=== PATIENT | male | born 1940 | race Hispanic/Latino ===

== ENCOUNTER 2021-04-11 13:35 | Inpatient (IN) | payer OTHER, MEDICARE ==
[2021-04-11] VITALS (8 sets, daily range): BP systolic 120–144; BP diastolic 59–75
[~2021-04-11] VITALS: Ht 172.7 cm; Wt 103.4 kg
[2021-04-11 13:54] LABS: BASOPHILS % (AUTO) 0.3 % (0.0-5.0); HEMATOCRIT 42.1 % (42-54); LYMPHOCYTES % (AUTO) 4.2 % (21.0-51.0); MEAN CORPUSCULAR HEMOGLOBIN 27.3 pg (27.0-33.0); MEAN CORPUSCULAR HGB CONC 32.1 g/dL (32.0-36.0); MEAN CORPUSCULAR VOLUME 85.2 fL (79-99); MONOCYTES % (AUTO) 5.1 % (3.0-13.0); NEUTROPHILS % (AUTO) 86.9 % (40.0-77.0); PLATELET COUNT (AUTO) 173 K/uL (130-400); RED BLOOD CELL COUNT(AUTO) 4.94 MIL/uL (4.50-6.20); RED CELL DISTRIBUTION WIDTH 13.3 % (11.0-15.5); WHITE BLOOD COUNT (AUTO) 15.4 K/uL (4.8-10.8)
[2021-04-11] MEDS ORDERED: ASPIRIN 325MG EC TAB PO ONE (14:00)
[2021-04-11] MEDS ORDERED: ONDANSETRON 4MG INJ IVP ONE (14:00)
[2021-04-11] MEDS ORDERED: MORPHINE 2 MG SYG IVP ONE (14:00)
[2021-04-11 14:10] LABS: INR 1.01 (0.85-1.15)
[2021-04-11 14:12] LABS: CREATININE 1.7 mg/dL (0.5-1.5); PARTIAL THROMBOPLASTIN TIME 32.8 SEC (26.3-35.5); POTASSIUM 4.2 mmol/L (3.5-5.1)
[2021-04-11 14:16] LABS: ALBUMIN 3.3 g/dL (3.5-5.0); BILIRUBIN,TOTAL 0.5 mg/dL (0.2-1.0); TOTAL PROTEIN, SERUM 7.6 g/dL (6.0-8.3)
[2021-04-11 14:22] LABS: B-TYPE NATRIURETIC PEPTIDE 359 pg/mL (0-100)
[2021-04-11] MEDS ORDERED: 0.9% NACL 250ML IVPB ONE (16:30)
[2021-04-11] MEDS ORDERED: CEFTRIAXONE 1G VIAL IVP ONE (16:30)
[2021-04-11] MEDS ORDERED: AZITHROMYCIN 500MG VIAL IVPB ONE (16:30)
[2021-04-11] MEDS ORDERED: AZITHROMYCIN 500MG+NS 250ML 250 ML IV ONE (17:07)
[2021-04-11] MEDS ORDERED: GLUCAGON 1MG KIT 1 MG ML IM PRN (17:30)
[2021-04-11] MEDS ORDERED: DEXTROSE 50%-WATER 50 ML DISP.SYRIN IV PRN (17:30)
[2021-04-11] MEDS ORDERED: ACETAMINOPHEN 325 MG TAB ONE (17:55)
[2021-04-11] MEDS ORDERED: ACETAMINOPHEN 325 MG TAB PO ONE (18:00)
[2021-04-11 18:33] LABS: APPEARANCE,URINE Clear (CLEAR); BILIRUBIN,URINE Negative (NEGATIVE); COLOR,URINE Yellow (YELLOW); GLUCOSE, URINE (UA) Negative (NEGATIVE); KETONES,URINE Negative (NEGATIVE); LEUKOCYTE ESTERASE ,URINE Trace (NEGATIVE); NITRATE,URINE Negative (NEGATIVE); OCCULT BLOOD,URINE Negative (NEGATIVE); PH,URINE 5.5 (5.0-8.0); PROTEIN,URINE 300 mg/dL (NEGATIVE)
[2021-04-11 18:39] LABS: RBC,URINE 0-1 /HPF (0-1)
[2021-04-11 18:40] LABS: BACTERIA,URINE Rare /HPF (None Seen); SQUAMOUS EPITHELIAL CELL,UR Rare /HPF (0-2)
[2021-04-11] MEDS ORDERED: ONDANSETRON 4MG INJ IVP PRN (19:30)
[2021-04-11] MEDS: INSULIN HUMULIN R 100 UNIT/ML 3ML SQ SCH (19:49)
[2021-04-11] MEDS: DOXYCYCLINE 100MG+NS 250ML IV SCH (20:31)
[2021-04-11] MEDS: 0.9% NACL 250ML IVPB SCH (20:31)
[2021-04-11] MEDS: ACETAMINOPHEN 325 MG TAB PO PRN (23:13)
[2021-04-12 04:00] VITALS: BP 134/68
[2021-04-12] MEDS: INSULIN HUMULIN R 100 UNIT/ML 3ML SQ SCH ×4 (05:51→20:21)
[2021-04-12 05:57] LABS: BASOPHILS % (AUTO) 0.3 % (0.0-5.0); HEMATOCRIT 41.4 % (42-54); LYMPHOCYTES % (AUTO) 5.3 % (21.0-51.0); MEAN CORPUSCULAR HEMOGLOBIN 27.2 pg (27.0-33.0); MEAN CORPUSCULAR HGB CONC 31.2 g/dL (32.0-36.0); MEAN CORPUSCULAR VOLUME 87.2 fL (79-99); MONOCYTES % (AUTO) 7.5 % (3.0-13.0); NEUTROPHILS % (AUTO) 84.1 % (40.0-77.0); PLATELET COUNT (AUTO) 174 K/uL (130-400); RED BLOOD CELL COUNT(AUTO) 4.75 MIL/uL (4.50-6.20); RED CELL DISTRIBUTION WIDTH 13.3 % (11.0-15.5); WHITE BLOOD COUNT (AUTO) 11.7 K/uL (4.8-10.8)
[2021-04-12] MEDS ORDERED: MAGNESIUM 2GM PREMIX 50ML 50 ML IV PRN (06:00)
[2021-04-12] MEDS: 0.9% NACL 250ML IVPB SCH ×2 (06:12→19:30)
[2021-04-12] MEDS: DOXYCYCLINE 100MG+NS 250ML IV SCH ×2 (06:12→18:11)
[2021-04-12] MEDS: MORPHINE 2 MG SYG IVP PRN ×3 (06:21→18:11)
[2021-04-12 06:23] LABS: CREATININE 1.7 mg/dL (0.5-1.5); MAGNESIUM 2.1 mg/dL (1.80-2.40); POTASSIUM 4.4 mmol/L (3.5-5.1)
[2021-04-12 06:40] LABS: HEMOGLOBIN A1C 7.1 % (4.0-6.0)
[2021-04-12 07:50] VITALS: BP 134/61
[2021-04-12] MEDS: ENOXAPARIN SODIUM 30 MG/0.3 ML SQ SCH (08:50)
[2021-04-12] MEDS ORDERED: METO25TA6 PO (10:39)
[2021-04-12] MEDS ORDERED: ATOR10TA69 PO (10:39)
[2021-04-12] MEDS ORDERED: SITA100T12 PO (10:48)
[2021-04-12] MEDS ORDERED: ASPI-1197 PO (10:48)
[2021-04-12] MEDS ORDERED: AMLO-258 PO (10:48)
[2021-04-12] MEDS ORDERED: LISI40TA9 PO (10:48)
[2021-04-12] MEDS ORDERED: GLIP5TAB11 PO (10:48)
[2021-04-12] MEDS ORDERED: LEVO88CA4 PO (10:48)
[2021-04-12] MEDS ORDERED: TAMS-1 PO (10:48)
[2021-04-12 12:00] VITALS: BP 142/73
[2021-04-12] MEDS: SOLU-MEDROL 40MG VIAL IVP SCH (14:56)
[2021-04-12 16:00] VITALS: BP 149/58
[2021-04-12] MEDS ORDERED: NITR0.4T50 SL (17:25)
[2021-04-12] MEDS ORDERED: NITROGLYCERIN 0.4 MG SL TAB SL PRN (17:30)
[2021-04-12] MEDS ORDERED: NITROGLYCERIN 0.4 MG SL TAB SL ONE (17:32)
[2021-04-12] MEDS: CEFTRIAXONE 1G VIAL IVP SCH (18:12)
[2021-04-12 20:00] VITALS: BP 123/63
[2021-04-12] MEDS: ACETAMINOPHEN 325 MG TAB PO PRN (20:19)
[2021-04-12] MEDS: METOPROLOL TARTRATE 25 MG TAB PO SCH (20:19)
[2021-04-13] VITALS (7 sets, daily range): BP systolic 119–147; BP diastolic 7–72
[2021-04-13] MEDS ORDERED: LEVOTHYROXINE 88 MCG TABLET ONE (04:50)
[2021-04-13] MEDS ORDERED: GLIPIZIDE 5 MG TABLET ONE (04:50)
[2021-04-13 05:45] LABS: HEMATOCRIT 41.2 % (42-54); MEAN CORPUSCULAR HGB CONC 30.8 g/dL (32.0-36.0); MEAN CORPUSCULAR VOLUME 87.7 fL (79-99); PLATELET COUNT (AUTO) 162 K/uL (130-400); RED CELL DISTRIBUTION WIDTH 13.2 % (11.0-15.5); WHITE BLOOD COUNT (AUTO) 13.5 K/uL (4.8-10.8)
[2021-04-13 05:58] LABS: CREATININE 2.1 mg/dL (0.5-1.5); MAGNESIUM 2.3 mg/dL (1.80-2.40); POTASSIUM 4.7 mmol/L (3.5-5.1)
[2021-04-13] MEDS: LEVOTHYROXINE 88 MCG TABLET PO SCH (06:25)
[2021-04-13] MEDS: DOXYCYCLINE 100MG+NS 250ML IV SCH ×2 (06:25→21:03)
[2021-04-13] MEDS: 0.9% NACL 250ML IVPB SCH ×2 (06:25→21:03)
[2021-04-13] MEDS: GLIPIZIDE 5 MG TABLET PO SCH (06:25)
[2021-04-13] MEDS: INSULIN HUMULIN R 100 UNIT/ML 3ML SQ SCH ×4 (06:26→21:00)
[2021-04-13] MEDS: LACTULOSE 20 GM/30 ML UDCUP PO SCH ×3 (07:52→17:09)
[2021-04-13] MEDS: LINAGLIPTIN 5 MG TABLET PO SCH (08:59)
[2021-04-13] MEDS: SOLU-MEDROL 40MG VIAL IVP SCH (08:59)
[2021-04-13] MEDS: ATORVASTATIN 10 MG TABLET PO SCH (09:00)
[2021-04-13] MEDS: ASPIRIN 81MG CHEW TAB PO SCH (09:00)
[2021-04-13] MEDS: LISINOPRIL 40 MG TABLET PO SCH (09:00)
[2021-04-13] MEDS: METOPROLOL TARTRATE 25 MG TAB PO SCH ×2 (09:00→21:03)
[2021-04-13] MEDS: AMLODIPINE 5 MG TAB PO SCH (09:00)
[2021-04-13] MEDS: TAMSULOSIN HCL 0.4 MG CAP.ER.24H PO SCH (09:00)
[2021-04-13] MEDS: ENOXAPARIN SODIUM 30 MG/0.3 ML SQ SCH (09:07)
[2021-04-13] MEDS: CEFTRIAXONE 1G VIAL IVP SCH (17:09)
[2021-04-13] MEDS: MORPHINE 2 MG SYG IVP PRN (21:09)
[2021-04-14 03:36] VITALS: BP 139/72
[2021-04-14] MEDS: INSULIN HUMULIN R 100 UNIT/ML 3ML SQ SCH ×4 (06:13→22:32)
[2021-04-14] MEDS: 0.9% NACL 250ML IVPB SCH ×2 (06:17→22:19)
[2021-04-14] MEDS: GLIPIZIDE 5 MG TABLET PO SCH (06:17)
[2021-04-14] MEDS: LEVOTHYROXINE 88 MCG TABLET PO SCH (06:17)
[2021-04-14] MEDS: DOXYCYCLINE 100MG+NS 250ML IV SCH ×2 (06:17→22:18)
[2021-04-14 08:19] VITALS: BP 146/86
[2021-04-14] MEDS: METOPROLOL TARTRATE 25 MG TAB PO SCH ×2 (10:17→22:21)
[2021-04-14] MEDS: ATORVASTATIN 10 MG TABLET PO SCH (10:17)
[2021-04-14] MEDS: LINAGLIPTIN 5 MG TABLET PO SCH (10:17)
[2021-04-14] MEDS: AMLODIPINE 5 MG TAB PO SCH (10:17)
[2021-04-14] MEDS: TAMSULOSIN HCL 0.4 MG CAP.ER.24H PO SCH (10:17)
[2021-04-14] MEDS: ASPIRIN 81MG CHEW TAB PO SCH (10:17)
[2021-04-14] MEDS: LISINOPRIL 40 MG TABLET PO SCH (10:19)
[2021-04-14] MEDS: SOLU-MEDROL 40MG VIAL IVP SCH ×3 (10:19→22:20)
[2021-04-14] MEDS: ENOXAPARIN SODIUM 30 MG/0.3 ML SQ SCH (10:20)
[2021-04-14 11:10] VITALS: BP 140/65
[2021-04-14] MEDS ORDERED: HYDRALAZINE 20MG/ML VIAL IV PRN (11:30)
[2021-04-14] MEDS: IPRATROPIUM/ALBUTEROL SULFATE 3 ML SOLUTION IH SCH ×4 (11:46→22:58)
[2021-04-14] MEDS ORDERED: IPRATROPIUM/ALBUTEROL SULFATE 3 ML SOLUTION IH SCH (12:00)
[2021-04-14 15:47] VITALS: BP 144/64
[2021-04-14] MEDS ORDERED: BUDESONIDE 0.25 MG/2 ML INH IH ONE (18:23)
[2021-04-14] MEDS: BUDESONIDE 0.5 MG/2 ML INH IH SCH (18:25)
[2021-04-14] MEDS: CEFTRIAXONE 1G VIAL IVP SCH (18:38)
[2021-04-14 20:17] VITALS: BP 125/50
[2021-04-14] MEDS ORDERED: PREDNISONE 20 MG TABLET PO SCH (21:00)
[2021-04-14] MEDS: MONTELUKAST SODIUM 10 MG TAB PO SCH (22:21)
[2021-04-14 23:22] VITALS: BP 122/56
[2021-04-15] MEDS: IPRATROPIUM/ALBUTEROL SULFATE 3 ML SOLUTION IH SCH ×6 (02:26→22:22)
[2021-04-15 04:20] VITALS: BP 123/55
[2021-04-15 05:05] LABS: HEMATOCRIT 37.1 % (42-54); MEAN CORPUSCULAR HEMOGLOBIN 26.7 pg (27.0-33.0); MEAN CORPUSCULAR VOLUME 86.1 fL (79-99); RED BLOOD CELL COUNT(AUTO) 4.31 MIL/uL (4.50-6.20); RED CELL DISTRIBUTION WIDTH 13.7 % (11.0-15.5); WHITE BLOOD COUNT (AUTO) 11.1 K/uL (4.8-10.8)
[2021-04-15 05:16] LABS: MAGNESIUM 2.3 mg/dL (1.80-2.40); POTASSIUM 4.5 mmol/L (3.5-5.1)
[2021-04-15] MEDS: SOLU-MEDROL 40MG VIAL IVP SCH ×3 (06:27→22:24)
[2021-04-15] MEDS: LEVOTHYROXINE 88 MCG TABLET PO SCH (06:28)
[2021-04-15] MEDS: GLIPIZIDE 5 MG TABLET PO SCH (06:30)
[2021-04-15] MEDS: BUDESONIDE 0.5 MG/2 ML INH IH SCH ×2 (06:33→22:22)
[2021-04-15] MEDS: INSULIN HUMULIN R 100 UNIT/ML 3ML SQ SCH ×4 (06:36→21:50)
[2021-04-15 08:00] VITALS: BP 136/64
[2021-04-15] MEDS: ASPIRIN 81MG CHEW TAB PO SCH (08:34)
[2021-04-15] MEDS: TAMSULOSIN HCL 0.4 MG CAP.ER.24H PO SCH (08:35)
[2021-04-15] MEDS: AMLODIPINE 5 MG TAB PO SCH (08:35)
[2021-04-15] MEDS: ATORVASTATIN 10 MG TABLET PO SCH (08:35)
[2021-04-15] MEDS: METOPROLOL TARTRATE 25 MG TAB PO SCH ×2 (08:35→20:42)
[2021-04-15] MEDS: NICOTINE 14 MG/ 24 HR PATCH TD SCH (08:49)
[2021-04-15] MEDS: DOXYCYCLINE 100MG+NS 250ML IV SCH ×2 (11:25→22:24)
[2021-04-15] MEDS: ENOXAPARIN SODIUM 30 MG/0.3 ML SQ SCH (11:26)
[2021-04-15] MEDS: 0.9% NACL 250ML IVPB SCH ×2 (11:26→19:30)
[2021-04-15 12:00] VITALS: BP 128/61
[2021-04-15 16:00] VITALS: BP 128/56
[2021-04-15] MEDS: CEFTRIAXONE 1G VIAL IVP SCH (18:52)
[2021-04-15] MEDS: MONTELUKAST SODIUM 10 MG TAB PO SCH (20:42)
[2021-04-15 20:43] VITALS: BP 134/58
[2021-04-15 23:55] VITALS: BP 126/68
[2021-04-16] MEDS: IPRATROPIUM/ALBUTEROL SULFATE 3 ML SOLUTION IH SCH ×6 (02:11→23:48)
[2021-04-16 04:00] VITALS: BP 116/59
[2021-04-16] MEDS: LEVOTHYROXINE 88 MCG TABLET PO SCH (05:47)
[2021-04-16] MEDS: SOLU-MEDROL 40MG VIAL IVP SCH ×3 (05:47→19:33)
[2021-04-16] MEDS: GLIPIZIDE 5 MG TABLET PO SCH (06:38)
[2021-04-16] MEDS: INSULIN HUMULIN R 100 UNIT/ML 3ML SQ SCH ×4 (06:41→20:43)
[2021-04-16] MEDS: BUDESONIDE 0.5 MG/2 ML INH IH SCH ×2 (06:53→18:28)
[2021-04-16 08:00] VITALS: BP 133/63
[2021-04-16] MEDS: TAMSULOSIN HCL 0.4 MG CAP.ER.24H PO SCH (09:07)
[2021-04-16] MEDS: METOPROLOL TARTRATE 25 MG TAB PO SCH ×2 (09:08→19:33)
[2021-04-16] MEDS: ASPIRIN 81MG CHEW TAB PO SCH (09:09)
[2021-04-16] MEDS: ATORVASTATIN 10 MG TABLET PO SCH (09:09)
[2021-04-16] MEDS: AMLODIPINE 5 MG TAB PO SCH (09:11)
[2021-04-16] MEDS: ENOXAPARIN SODIUM 30 MG/0.3 ML SQ SCH (09:13)
[2021-04-16] MEDS: DOXYCYCLINE 100MG+NS 250ML IV SCH ×2 (09:14→22:33)
[2021-04-16] MEDS: NICOTINE 14 MG/ 24 HR PATCH TD SCH (09:14)
[2021-04-16] MEDS: 0.9% NACL 250ML IVPB SCH ×2 (09:33→19:38)
[2021-04-16 11:54] VITALS: BP 135/54
[2021-04-16 16:00] VITALS: BP 140/63
[2021-04-16] MEDS: CEFTRIAXONE 1G VIAL IVP SCH (19:33)
[2021-04-16] MEDS: MONTELUKAST SODIUM 10 MG TAB PO SCH (19:35)
[2021-04-16 20:06] VITALS: BP 135/57
[2021-04-17 00:25] VITALS: BP 132/59
[2021-04-17] MEDS: IPRATROPIUM/ALBUTEROL SULFATE 3 ML SOLUTION IH SCH ×4 (02:00→13:52)
[2021-04-17 04:00] VITALS: BP 123/60
[2021-04-17 04:43] LABS: HEMATOCRIT 39.3 % (42-54); MEAN CORPUSCULAR HEMOGLOBIN 26.5 pg (27.0-33.0); MEAN CORPUSCULAR HGB CONC 30.8 g/dL (32.0-36.0); MEAN CORPUSCULAR VOLUME 86.2 fL (79-99); RED BLOOD CELL COUNT(AUTO) 4.56 MIL/uL (4.50-6.20)
[2021-04-17 04:51] LABS: MAGNESIUM 2.6 mg/dL (1.80-2.40)
[2021-04-17] MEDS: GLIPIZIDE 5 MG TABLET PO SCH (06:46)
[2021-04-17] MEDS: LEVOTHYROXINE 88 MCG TABLET PO SCH (06:46)
[2021-04-17] MEDS: 0.9% NACL 250ML IVPB SCH (06:48)
[2021-04-17] MEDS: INSULIN HUMULIN R 100 UNIT/ML 3ML SQ SCH ×3 (07:01→16:37)
[2021-04-17] MEDS: BUDESONIDE 0.5 MG/2 ML INH IH SCH (08:00)
[2021-04-17 08:20] VITALS: BP 139/66
[2021-04-17] MEDS: DOXYCYCLINE 100MG+NS 250ML IV SCH (09:00)
[2021-04-17] MEDS: NICOTINE 14 MG/ 24 HR PATCH TD SCH (09:00)
[2021-04-17] MEDS: ATORVASTATIN 10 MG TABLET PO SCH (09:01)
[2021-04-17] MEDS: TAMSULOSIN HCL 0.4 MG CAP.ER.24H PO SCH (09:02)
[2021-04-17] MEDS: AMLODIPINE 5 MG TAB PO SCH (09:02)
[2021-04-17] MEDS: METOPROLOL TARTRATE 25 MG TAB PO SCH (09:02)
[2021-04-17] MEDS: ENOXAPARIN SODIUM 30 MG/0.3 ML SQ SCH (09:04)
[2021-04-17] MEDS: ASPIRIN 81MG CHEW TAB PO SCH (09:04)
[2021-04-17] MEDS ORDERED: PREDNISONE 20 MG TABLET PO SCH (09:30)
[2021-04-17 11:53] VITALS: BP 140/67
[2021-04-17 16:29] VITALS: BP 136/69
== END 2021-04-17 19:35 | DRG 193 ==
LOC: EDH 13:35 → EDHIP 16:35 → 3DH 21:36
PROVIDERS: ADMIT Internal Medicine Infectious Disease; ATTEND Internal Medicine Infectious Disease
DX: J15.9 Unspecified bacterial pneumonia (principal); J96.91 Respiratory failure, unspecified with hypoxia; J44.1 Chronic obstructive pulmonary disease with (acute) exacerbation; N17.9 Acute kidney failure, unspecified; J44.0 Chronic obstructive pulmonary disease with (acute) lower respiratory infection; Z20.822 Contact with and (suspected) exposure to COVID-19; E66.01 Morbid (severe) obesity due to excess calories; E78.5 Hyperlipidemia, unspecified; E78.00 Pure hypercholesterolemia, unspecified; F17.210 Nicotine dependence, cigarettes, uncomplicated; I25.10 Atherosclerotic heart disease of native coronary artery without angina pectoris; I12.9 Hypertensive chronic kidney disease with stage 1 through stage 4 chronic kidney disease, or unspecified chronic kidney disease; N18.9 Chronic kidney disease, unspecified; E11.22 Type 2 diabetes mellitus with diabetic chronic kidney disease; R53.81 Other malaise; Z68.35 Body mass index [BMI] 35.0-35.9, adult; Z79.51 Long term (current) use of inhaled steroids; Z87.01 Personal history of pneumonia (recurrent); Z95.5 Presence of coronary angioplasty implant and graft
CPT/HCPCS: 36415; 71045; 71046; 71250; 78582; 80048; 80053; 81001; 82550; 82948; 83036; 83735; 83874; 83880; 84484; 85025; 85027; 85378; 85610; 85730; 86140; 87040; 87071; 87088; 87205; 87635; 87804; 87880; 93005; 94640; 97039; 99291; A9540; A9558; C9803; G0378; J0456; J0696; J1650; J1815; J2405; J2920; J3490; J7050

== ENCOUNTER → 2022-01-05 | Outpatient (CLI) | payer OTHER, MEDICARE ==
[~2022-01-05] VITALS: Ht 172.7 cm; Wt 98.0 kg
[~2022-01-05] MED LIST: AMLO-258 PO; ASPI-1197 PO; ATOR10TA69 PO; GLIP5TAB11 PO; LEVO88CA4 PO; LISI40TA9 PO; METO25TA6 PO; NITR0.4T50 SL; REGADENOSON 0.4 MG/5 ML PF SYG IVP SCH; SITA100T12 PO; TAMS-1 PO
== END | disposition home or self-care (01) ==
LOC: SHCH 09:14
PROVIDERS: ATTEND Internal Medicine Cardiovascular Disease
DX: R07.9 Chest pain, unspecified (principal)
CPT/HCPCS: 78452; 93017; 96374; A9500 ×2; J2785